=== PATIENT | female | born 1985 | race Caucasian/White ===

== ENCOUNTER 2017-05-12 08:56 | Emergency (ER) | END 2017-05-12 10:49 | disposition home or self-care (01) ==

== ENCOUNTER 2018-09-01 20:25 | Emergency (ER) | payer OTHER ==
[~2018-09-01] VITALS: Ht 157.5 cm; Wt 68.4 kg
[~2018-09-01 20:25] MED LIST: ALBU8.5H8 INH; AZIT250T PO; BENZ-6 PO; IBUP-1561 PO; ONDA4TAB14 PO
[2018-09-01 21:13] VITALS: Ht 157.5 cm; Wt 68.4 kg
--- NOTE | 2018-09-02 00:54 | ERD ---
ER Documentation Chief Complaint Chief Complaint flu-liked symptoms x 1 week (fever,achy throat cough,congestion) HPI This is a 33-year-old female who presents to emergency department with complaints of cough, congestion, bilateral ear pain, throat pain for about a week. LMP: August 11, 2018. G2, . Denies headache, head injury, loss of consciousness, dizziness, neck pain, neck stiffness, throat pain, difficulty swallowing, difficulty breathing lying flat, shoulder pain, chest pain, back pain, abdominal pain, nausea, vomiting, constipation, diarrhea, urinary symptoms, or possibility being , loss of bowel and bladder control, trauma, injury, falls, difficulty walking due to pain, numbness or tingling sensation, calf pain, recent travel, recent major surgery in the last 3 weeks, calf pain, recent long travel, recent exposure to any illness, recent antibiotic use in the last 3 months, fever, chills, seizures. Past medical history: Surgical history: Social: Denies smoking, use of alcoholic beverages, use of illegal drugs. ROS All systems reviewed and are negative except as per history of present illness. Medications Home Meds Active Scripts Mometasone Furoate* (Nasonex*) 50 Mcg/[place] - 17 Gm [place].pump, 1 SPRAY NASAL BID, #1 BOTTLE IN EACH NOSTRIL Prov:PASILABANJENIFFER F 09/02/18 Benzonatate* (Tessalon Perle*) 100 Mg Capsule, 100 MG PO Q8H PRN for COUGH, #20 CAP Prov:PASILABAN,CIELOAR F 09/02/18 Acetaminophen* (Tylophen*) 500 Mg Capsule, 1 CAP PO Q6H PRN for PAIN AND OR ELEVATED TEMP, #30 CAP Prov:PASILABAN,KLAR F 09/02/18 Azithromycin* (Zithromax*) 250 Mg Tablet, 250 MG PO .InderjitPACK DIRECTED, #6 TAB TAKE 500 MG (2 TABS) THE FIRST DAY THEN 250 MG (1 TAB) DAYS 2-5 Prov:PASILABAN,CIELOAR F 09/02/18 Ondansetron (Ondansetron Odt) 4 Mg Tab.rapdis, 4 MG PO Q6H PRN for NAUSEA AND/OR VOMITING, #10 TAB Prov:BULL REDMAN PA-C 05/12/17 Albuterol Sulfate* (Proair HFA*) 8.5 Gm Hfa.aer.ad, 2 PUFF INH Q6, #1 INHALER Prov:BULL REDMAN DIOGO-C 05/12/17 Benzonatate* (Tessalon Perle*) 100 Mg Capsule, 100 MG PO Q8H PRN for COUGH, #20 CAP Prov:BULL REDMAN PA-C 05/12/17 Ibuprofen* (Motrin*) 400 Mg Tab, 400 MG PO Q6, #30 TAB Prov:BULL REDMAN DIOGO-C 05/12/17 Azithromycin* (Zithromax*) 250 Mg Tablet, 250 MG PO .ZPACK DIRECTED, #6 TAB TAKE 500 MG (2 TABS) THE FIRST DAY THEN 250 MG (1 TAB) DAYS 2-5 Prov:BULL REDMAN PA-C 05/12/17 Allergies Allergies: Coded Allergies: No Known Allergy (Unverified , 09/01/18) PMhx/Soc Medical and Surgical Hx: pt denies Medical Hx, pt denies Surgical Hx Hx Alcohol Use: No Hx Substance Use: No Hx Tobacco Use: No Smoking Status: Never smoker Physical Exam Vitals Physical Exam Const: No acute distress Head: Atraumatic Eyes: Normal Conjunctiva ENT: Normal External Ears, Nose and Mouth. Bilateral ears: TMs are not erythematous. No bleeding. No discharge. No hearing loss. No mastoid tenderness. Nose: There is no frontal or maxillary sinus tenderness palpation. Throat: Uvula is in midline and nondisplaced. Tonsils are +1 bilaterally without redness and without exudates. Tolerating secretions. Patent airway. Speaks full and clear sentences. No tripoding. Neck: Full range of motion. No meningismus. No nuchal rigidity. No signs of meningeal irritation. Resp: Clear to auscultation bilaterally. No accessory muscle use in breathing. Cardio: Regular rate and rhythm, no murmurs Abd: Soft, non tender, non distended. Normal bowel sounds. Negative Salcido sign. Skin: No petechiae or rashes. Color appears normal for ethnicity. No skin tenting. No signs of severe dehydration. Back: No midline or flank tenderness Ext: No cyanosis, or edema Neur: Awake and alert. No neurological deficits. Psych: Normal Mood and Affect Results 24 hrs Current Medications Medications Dose Sig/Jessica Start Time Status Last (Trade) Ordered Route PRN Stop Time Admin Dose Reason Admin 1,000 mg ONCE STAT 09/02/18 DC 09/02/18 Acetaminophen PO 00:57 01:02 (Tylenol 09/02/18 00:59 Tab) Procedures/MDM Diagnostic tests: Clinical exam. Treatment: Tylenol p.o. Re-evaluation: Afebrile. Differential diagnosis I have low suspicion for sepsis, meningitis, peritonsillar abscess, mastoiditis, bronchospasm, pneumonia, severe dehydration. Final diagnosis: Bronchitis. Prescription: Azithromycin. Tessalon Perles. Tylenol. Nasonex. Follow-up with PCP in the next 24-48 hours. Come back here in the emergency department for any new symptoms or any worsening symptoms. All questions and concerns were answered. Patient and family members verbalized understanding and agreed with plan of care. Hemodynamically stable on discharge. Departure Diagnosis: Primary Impression: Influenza-like symptoms Additional Impression: Bronchitis Condition: Stable Additional Instructions: Follow-up with PCP in the next 24-48 hours. Come back here in the emergency department for any new symptoms or any worsening symptoms. JENIFFER CHAVEZ September 02, 2018 00:54
[2018-09-02] MEDS ORDERED: ACETAMINOPHEN 500 MG TAB PO STA (00:57)
[2018-09-02] MEDS ORDERED: BENZ-6 PO (01:03)
[2018-09-02] MEDS ORDERED: ACET500C5 PO (01:03)
[2018-09-02] MEDS ORDERED: AZIT250T PO (01:03)
[2018-09-02] MEDS ORDERED: NASO17 NASAL (01:03)
[2018-09-02 01:09] VITALS: BP 110/70; PULSE 91; RESP 17
== END 2018-09-02 01:09 | disposition home or self-care (01) ==
LOC: FTE 20:25
DX: J40 Bronchitis, not specified as acute or chronic (principal)
CPT/HCPCS: 99283